=== PATIENT | male | born 1995 | race Caucasian/White ===

== ENCOUNTER 2021-11-19 12:02 | Emergency (ER) | payer MEDICAID, OTHER ==
[~2021-11-19] VITALS: Ht 172.7 cm; Wt 69.9 kg
[2021-11-19] MEDS ORDERED: IV NORMAL SALINE 1000 ML BAG IV ONE ×2 (12:15→13:00)
[2021-11-19] MEDS ORDERED: BUPRENORPHINE HCL 2 MG TAB.SUBL SL ONE ×2 (12:15→12:24)
[2021-11-19 12:33] LABS: HEMATOCRIT 51.4 % (36.7-47.1); MEAN CORPUSCULAR HEMOGLOBIN 25.6 uug (23.8-33.4); MEAN CORPUSCULAR VOLUME 79.6 fL (73.0-96.2); PLATELET COUNT (AUTO) 363 K/uL (152-348)
[2021-11-19 12:56] LABS: CARBON DIOXIDE 24 mmol/L (21-32); CHLORIDE 100 mmol/L (98-107); CREATININE 1.2 mg/dL (0.6-1.3); GLUCOSE 224 mg/dL (74-106); POTASSIUM 3.2 mmol/L (3.5-5.1); UREA NITROGEN, BLOOD 22 mg/dL (7-18)
[2021-11-19] MEDS ORDERED: PIPERACILLIN SODIUM/TAZOBACTAM 3.375 G in IV DEXTROSE 5% 50 ML IV ONE (13:00)
[2021-11-19] MEDS ORDERED: VANCOMYCIN IV 1,000 MG in IV DEXTROSE 5% 250 ML IV ONE (13:00)
[2021-11-19] MEDS ORDERED: DILTIAZEM HCL 50 MG IV ONE (13:04)
[2021-11-19 13:07] LABS: ALANINE AMINOTRANSFERASE 51 U/L (16-63); ALKALINE PHOSPHATASE 105 U/L (50-136); ASPARTATE AMINOTRANSFERASE 41 U/L (15-37); TOTAL PROTEIN, SERUM 7.7 g/dL (6.4-8.2)
[2021-11-19 13:09] LABS: ACETAMINOPHEN < 2.0 ug/mL (10-30); ETHANOL < 3 MG/DL (0-0)
[2021-11-19] MEDS ORDERED: DILTIAZEM HCL 25 MG IV IV ONE ×2 (13:15→13:45)
[2021-11-19] MEDS ORDERED: PIPERACILLIN/TAZOBACTAM/D5W 50 ML IV ONE (13:17)
[2021-11-19] MEDS ORDERED: VANCOMYCIN IV 200 ML ONE (13:18)
[2021-11-19 13:19] LABS: BILIRUBIN,DIRECT 0.2 mg/dL (0.0-0.2)
[2021-11-19 13:29] LABS: BILIRUBIN,TOTAL 0.3 mg/dL (0.2-1.0)
[2021-11-19] MEDS ORDERED: POTASSIUM CHLORIDE 20 MEQ TAB.PRT.SR PO ONE (13:30)
[2021-11-19] MEDS ORDERED: POTASSIUM CHLORIDE 20 MEQ TAB.PRT.SR ONE ×2 (14:04→14:39)
[2021-11-19] MEDS ORDERED: ENOXAPARIN SODIUM 80 MG/0.8 ML DISP.SYRIN SQ ONE ×2 (14:15→14:40)
[2021-11-19] MEDS ORDERED: DILTIAZEM HCL IV 125 MG in IV DEXTROSE 5% 100 ML IV ONE (15:15)
[2021-11-19] MEDS ORDERED: DILTIAZEM HCL IV 125 MG in IV NORMAL SALINE 100 ML IV PRN (15:30)
[2021-11-19] MEDS ORDERED: DILTIAZEM HCL IV 125 MG in IV DEXTROSE 5% 100 ML IV PRN (15:30)
[2021-11-19] MEDS ORDERED: IV 0.9% SODIUM CHLORID+ 20 KCL 1,000 ML IV ONE (15:45)
--- NOTE | 2021-11-19 16:18 | NUR ---
Notified Nursing sup for Midline/PICC insertion. ETA later tonight.
[2021-11-19] MEDS ORDERED: NOREPINEPHRINE BITARTRATE 8 MG in IV NORMAL SALINE 250 ML IV ONE (16:30)
[2021-11-19 16:50] VITALS: BP 70/38
[2021-11-19] MEDS ORDERED: AMIODARONE HCL IV 450 MG in IV DEXTROSE 5% 250 ML IV PRN (17:00)
[2021-11-19] MEDS ORDERED: METOCLOPRAMIDE HCL 10 MG/2 ML VIAL IV ONE (17:00)
--- NOTE | 2021-11-19 17:10 | NUR ---
Start a new Hl on AC angio #18.
--- NOTE | 2021-11-19 17:15 | NUR ---
PT 02 sat dropped on N/C, change to non rebreather. Dr Littlejohn re eval the pt.
[2021-11-19 17:25] LABS: ABG BASE EXCESS -7.7 mmol/L; ABG HCO3 17.9 mmol/L; ABG PCO2 36.8 mmHg (35.0-45.0); ABG PH 7.304 (7.350-7.450); ABG SITE LEFT RADIAL; ABG TOTAL HEMOGLOBIN 15.4 G/dL (13.5-18.0); COHb 0.2 % (0.5-1.5); MetHb 0.3 % (0.0-1.5)
[2021-11-19] MEDS ORDERED: NALOXONE HCL 0.4 MG/ML AMPUL IV ONE ×3 (17:30→18:15)
[2021-11-19] MEDS ORDERED: AMIODARONE HCL IV 150 MG in IV DEXTROSE 5% 100 ML IV ONE (17:30)
--- NOTE | 2021-11-19 17:33 | NUR ---
Pt placed on Hi flow oxygen, FIO2 24.
[2021-11-19] MEDS ORDERED: NALOXONE HCL 0.4 MG/ML AMPUL ONE ×2 (17:38→17:40)
[2021-11-19] MEDS ORDERED: NALOXONE 2 MG/2 ML SYRINGE ONE (17:45)
[2021-11-19] MEDS ORDERED: SWABABLE VALVE TRANSFER SET EA MC ONE (17:46)
[2021-11-19] MEDS ORDERED: IOHEXOL 350 100 ML INFUS..BTL ONE (17:46)
[2021-11-19] MEDS ORDERED: IV NORMAL SALINE 250 ML IV ONE (17:46)
[2021-11-19 18:24] LABS: *BILIRUBIN,URIN NEGATIVE (NEGATIVE); *COLOR,URINE YELLOW (YELLOW); *KETONES,URINE NEGATIVE (NEGATIVE); *UROBILINOGEN,URINE 0.2 E.U./dl (NORMAL); LEUKOCYTE ESTERASE ,URINE NEGATIVE (NEGATIVE); NITRITE, URINE NEGATIVE (NEGATIVE)
--- NOTE | 2021-11-19 18:30 | NUR ---
Found Pt having a syringe in hand and attempting to give himself Heroin. Called code thalia. Pt insissted he wants to use his drug otherwise he will leave.
[2021-11-19 18:32] LABS: UGLUCOSE 1+ (NEGATIVE)
[2021-11-19 18:33] LABS: *BLOOD, URINE TRACE (NEGATIVE)
[2021-11-19 18:34] LABS: *CLARITY,URINE SLIGHTLY HAZY (CLEAR); RBC,URINE 0-3 /HPF (0-3)
[2021-11-19 18:35] LABS: BACTERIA,URINE FEW /HPF (NONE SEEN); COARSE GRANULAR CASTS,URINE 0-3 /LPF; SQUAMOUS EPITHELIAL CELL,UR NONE SEEN /HPF (NONE SEEN); URINE AMORPHOUS URATE FEW /HPF
--- NOTE | 2021-11-19 18:35 | NUR ---
Patient does not wish to proceed with medical care recommended by Dr. Erickson). Patient given information related to possible complications, up to and including , which could occur as a result of leaving the hospital at this time. Patient verbalizes understanding of risks involved due to leaving against medical advice. Patient has signed AMA form.
--- NOTE | 2021-11-19 18:35 | NUR ---
IV removed. Catheter intact and site benign. Pressure and 4x4 gauze applied to site. No bleeding noted.
[2021-11-19 18:38] LABS: *AMPHETAMINE, URINE POSITIVE (NEGATIVE); *CANNABINOID, URINE NEGATIVE (NEGATIVE); *COCCAINE, URINE NEGATIVE (NEGATIVE); *OPIATE, URINE POSITIVE (NEGATIVE); *PHENCYCLIDINE SCREEN,URINE NEGATIVE (NEGATIVE)
== END 2021-11-19 18:40 | disposition left against medical advice (07) ==
LOC: ER 12:03
DX: I48.91 Unspecified atrial fibrillation (principal); I21.4 Non-ST elevation (NSTEMI) myocardial infarction; F11.13 Opioid abuse with withdrawal; Z20.822 Contact with and (suspected) exposure to COVID-19; J96.01 Acute respiratory failure with hypoxia; R73.9 Hyperglycemia, unspecified; F15.10 Other stimulant abuse, uncomplicated; R77.8 Other specified abnormalities of plasma proteins; E87.2 Acidosis
CPT/HCPCS: 36415; 36600; 71045; 80048; 80076; 80299; 80307; 80320; 81001; 82550; 83605 ×2; 83880; 84145; 84484 ×2; 85025; 85730; 87040 ×2; 87086; 87426; 93005; 96361; 96365 ×2; 96366; 96367; 96368; 96372; 96375 ×2; 96376; 99291; J1650; J2310 ×2; J2543; J3370; J3490 ×2; J7060; 70030-TC; A4663; G0480; J0282; J7040; J7050; Q9967